=== PATIENT | male | born 1970 | race Caucasian/White ===

== ENCOUNTER 2017-12-21 11:20 | Emergency (ER) | END 2017-12-21 12:59 | disposition home or self-care (01) ==

== ENCOUNTER 2018-01-05 14:45 | Emergency (ER) | END 2018-01-05 16:00 | disposition home or self-care (01) ==

== ENCOUNTER 2018-01-10 17:44 | Emergency (ER) | END 2018-01-10 20:12 | disposition left against medical advice (07) ==

== ENCOUNTER 2018-01-17 08:37 | Emergency (ER) | END 2018-01-17 09:17 | disposition home or self-care (01) ==

== ENCOUNTER 2018-01-21 02:59 | Emergency (ER) | END 2018-01-21 04:35 | disposition left against medical advice (07) ==

== ENCOUNTER 2018-01-23 08:41 | Emergency (ER) | END 2018-01-23 10:25 | disposition home or self-care (01) ==

== ENCOUNTER 2018-02-09 01:42 | Emergency (ER) | END 2018-02-09 02:21 | disposition home or self-care (01) ==

== ENCOUNTER 2018-02-24 15:41 | Emergency (ER) | END 2018-02-24 17:04 | disposition home or self-care (01) ==

== ENCOUNTER 2018-03-11 13:03 | Emergency (ER) | END 2018-03-11 14:58 | disposition home or self-care (01) ==

== ENCOUNTER 2018-03-13 22:51 | Emergency (ER) | END 2018-03-14 00:03 | disposition home or self-care (01) ==

== ENCOUNTER 2018-04-01 05:08 | Emergency (ER) | END 2018-04-01 06:29 | disposition home or self-care (01) ==

== ENCOUNTER 2018-07-24 14:55 | Emergency (ER) | payer OTHER ==
[~2018-07-24] VITALS: Ht 180.3 cm; Wt 78.6 kg
[~2018-07-24 14:55] MED LIST: ACET325T33 PO; AMOX1TAB10 PO; CEPH-443 PO; COLACE; GEODON; HYDR-3029 PO; HYDR-4011 PO; HYDR2CRE; IBUP-1542; IBUP-1542 PO; MED4DP PO; NAPR-985 PO; NEXIUM; PAXIL; REGLAN; TRAM50TA2 PO
[2018-07-24 14:59] VITALS: BP 132/90; PULSE 80; RESP 20; Ht 180.3 cm; Wt 78.6 kg
[2018-07-24] MEDS ORDERED: KETOROLAC 60 MG INJ IM STA (15:40)
--- NOTE | 2018-07-24 18:23 | ERD ---
ER Documentation Chief Complaint Chief Complaint Pt. KOJO ANNE c/o low back pain, exacerbated by movements HPI 47-year-old male patient with no significant past medical history presents to ED complaining of lower back pain that started 2 days ago, worsened today. Denies any heavy lifting or injuries. Rates his pain a 6 out of 10 and describes as achy. Denies any fever, chills, saddle anesthesia, urine or bowel incontinence, abdominal pain, dysuria, urgency, frequency, flank pain, hematuria. ROS All systems reviewed and are negative except as per history of present illness. Medications Home Meds Active Scripts Hydroxyzine Hcl* (Hydroxyzine Hcl*) 10 Mg Tablet, 10 MG PO Q6H PRN for ANXIETY, #30 TAB Prov:BRANDT DAVILA PA-C 04/01/18 Ibuprofen* (Motrin*) 600 Mg Tab, 600 MG PO Q6, #30 TAB Prov:MANUEL ULLOA MD 03/11/18 Hydrocodone/Acetaminophen (Reading 5-325 Tablet) 1 Each Tablet, 1 TAB PO Q6H PRN for PAIN, #14 TAB Prov:MANUEL ULLOA MD 03/11/18 Tramadol HCl (Tramadol HCl) 50 Mg Tablet, 50 MG PO Q4 PRN for PAIN, #20 TAB Take for pain in daytime. Prov:MANUEL ULLOA MD 03/11/18 Cephalexin* (Keflex*) 500 Mg Capsule, 500 MG PO QID for 10 Days, CAP Prov:MANUEL ULLOA MD 03/11/18 Ibuprofen* (Motrin*) 600 Mg Tab, 600 MG PO Q6, #30 TAB Prov:LOUISE YEH PA-C 02/24/18 Tramadol HCl (Tramadol HCl) 50 Mg Tablet, 50 MG PO Q4 PRN for PAIN, #7 TAB Prov:LOUISE YEH PA-C 02/24/18 Naproxen* (Naprosyn*) 500 Mg Tablet, 500 MG PO BID PRN for PAIN AND/OR INFLAMMATION, #20 TAB Prov:LOUISE YEH PA-C 02/09/18 Ibuprofen* (Motrin*) 600 Mg Tab, 600 MG PO Q6, #30 TAB Prov:LOUISE YEH PA-C 02/09/18 Tramadol HCl (Tramadol HCl) 50 Mg Tablet, 50 MG PO Q4 PRN for PAIN, #20 TAB Prov:BRANDT DAVILA PA-C 01/23/18 Methylprednisolone* (Medrol* DOSE PACK) 4 Mg/Dose-Pack Tab.ds.pk, 4 MG PO . DIRECTED, #1 PACKET Prov:BRANDT DAVILA PA-C 01/23/18 Acetaminophen* (Tylenol*) 325 Mg Tablet, 2 TAB PO Q6 PRN for PAIN AND OR ELEVATED TEMP, #30 TAB Prov:TWILA OSPINA PA-C 01/17/18 Ibuprofen* (Motrin*) 600 Mg Tab, 600 MG PO Q6H PRN for PAIN AND OR ELEVATED TEMP, #30 TAB Prov:TWILA OSPINA PA-C 01/17/18 Naproxen* (Naprosyn*) 500 Mg Tablet, 500 MG PO BID PRN for PAIN AND/OR INFLAMMATION, #30 TAB Prov:MY GONGORA PA-C 01/05/18 Amoxicillin/Potassium Clav (Amox-Clav 875-125 mg Tablet) 875-125 mg Tab, 1 TAB PO BID for 7 Days, #14 TAB Prov:BRANDT DAVILA PA-C 12/21/17 Hydrocodone/Acetaminophen (Reading 5-325 Tablet) 1 Each Tablet, 1 TAB PO Q6H PRN for PAIN, #7 TAB Prov:BRANDT DAVILA PA-C 12/21/17 Reported Medications [Nexium] No Conflict Check 08/31/10 [Reglan] No Conflict Check 08/31/10 Ibuprofen* (Ibuprofen*) 600 Mg Tablet 08/31/10 Hydrocortisone (Dermolate Anti-Itch) 2 Gm Cream.gm. 08/31/10 [Colace] No Conflict Check 08/31/10 [Paxil] No Conflict Check 08/31/10 [Geodon] No Conflict Check 08/31/10 Allergies Allergies: Coded Allergies: No Known Drug Allergies (Verified Allergy, Mild, 03/13/18) PMhx/Soc History of Surgery: No Anesthesia Reaction: No Hx Neurological Disorder: No Hx Respiratory Disorders: No Hx Cardiac Disorders: No Hx Psychiatric Problems: Yes (DEPRESSION) Hx Miscellaneous Medical Probl: No Hx Alcohol Use: Yes (SOCIALLY) Hx Substance Use: No Hx Tobacco Use: Yes (VAPE) Smoking Status: Never smoker FmHx Family History: No diabetes, No coronary disease Physical Exam Vitals Vital Signs Date Temp Pulse Resp B/P (MAP) Pulse Ox O2 O2 Flow FiO2 Time Delivery Rate 07/24/18 98.2 80 20 132/90 97 14:59 (104) Physical Exam Const: [id number], well-nourished. In no acute distress. Head: Atraumatic, normocephalic Eyes: Normal Conjunctiva without injection. No purulent discharge. ENT: Normal external ear, nose. Moist oropharynx without tonsillar exudates. Non-erythematous pharynx. Uvula midline. No drooling. No trismus. Neck: No cervical midline tenderness. Full range of motion. No meningismus. No cervical lymphadenopathy. No JVD. Resp: Clear to auscultation bilaterally. No wheezing, rhonchi, rales, or crackles. No accessory muscle use. No retractions. Cardio: Regular rate and rhythm. No murmurs, rubs or gallops. Abd: Soft, nontender, non distended. Normal bowel sounds. No palpable masses. No rebound tenderness. No guarding. Negative McBurney's point. Negative psoas sign. Negative obturator sign. Skin: No petechiae or rashes Back: No midline tenderness. No CVA tenderness. Ext: No cyanosis, or edema. Neur: Awake and alert. Normal gait. Normal coordination. Psych: Normal Mood and Affect Results 24 hrs Current Medications Medications Dose Sig/Rj Start Time Status Last (Trade) Ordered Route PRN Stop Time Admin Dose Reason Admin Ketorolac 60 mg ONCE STAT 07/24/18 DC 07/24/18 Tromethamine IM 15:40 07/24/18 15:46 (Toradol) 15:41 Procedures/MDM 47-year-old male patient with no significant past medical history presents to the ED complaining of lower back pain that started 2 days ago. Patient is afebrile and nontoxic-appearing. Patient treated here in the ED with Toradol 60 mg IM with improvement of his pain. IMPRESSION: 1. Disc disease and enthesopathy at L3-4, L4-5, and to a minimal extent at L5- S1. 2. Mild levoscoliosis and loss of lumbar lordosis. Patient is ambulating here in the ED without difficulty. Denies saddle anesthesia, numbness or tingling, urine or bowel incontinence, weakness. Low suspicion for cauda equina syndrome, cord compression, nephrolithiasis, aortic aneurysm, aortic dissection, epidural abscess, spinal hematoma, malignancy, pyelonephritis, or other emergent conditions. Diagnosis: Back Pain Patient eloped prior to receiving results from his lumbar x-ray and discharge papers. Departure Diagnosis: Primary Impression: Back pain Back pain location: back pain in unspecified location Chronicity: unspecified Back pain laterality: unspecified Qualified Codes: M54.9 - Dorsalgia, unspecified Condition: Stable Patient Instructions: Back Pain (Acute Or Chronic) Referrals: [facility] CLINICS YOU HAVE RECEIVED A MEDICAL SCREENING EXAM AND THE RESULTS INDICATE THAT YOU DO NOT HAVE A CONDITION THAT REQUIRES URGENT TREATMENT IN THE EMERGENCY DEPARTMENT. FURTHER EVALUATION AND TREATMENT OF YOUR CONDITION CAN WAIT UNTIL YOU ARE SEEN IN YOUR DOCTORS OFFICE WITHIN THE NEXT 1-2 DAYS. IT IS YOUR RESPONSIBILITY TO MAKE AN APPOINTMENT FOR FOL- CARE. IF YOU HAVE A PRIMARY DOCTOR --you should call your primary doctor and schedule an appointment IF YOU DO NOT HAVE A PRIMARY DOCTOR YOU CAN CALL OUR PHYSICIAN REFERRAL HOTLINE AT IF YOU CAN NOT AFFORD TO SEE A PHYSICIAN YOU CAN CHOSE FROM THE FOLLOWING [facility] [address] [facility]. [facility] [address] [facility]. [facility] [address] [facility] [facility] [address] [facility] [facility] [facility] [address] [facility] [facility]. [address] [facility]. [facility] YOU HAVE RECEIVED A MEDICAL SCREENING EXAM AND THE RESULTS INDICATE THAT YOU DO NOT HAVE A CONDITION THAT REQUIRES URGENT TREATMENT IN THE EMERGENCY DEPARTMENT. FURTHER EVALUATION AND TREATMENT OF YOUR CONDITION CAN WAIT UNTIL YOU ARE SEEN IN YOUR DOCTORS OFFICE WITHIN THE NEXT 1-2 DAYS. IT IS YOUR RESPONSIBILITY TO MAKE AN APPOINTMENT FOR [facility]. IF YOU HAVE A PRIMARY DOCTOR --you should call your primary doctor and schedule and appointment IF YOU DO NOT HAVE A PRIMARY DOCTOR YOU CAN CALL OUR PHYSICIAN REFERRAL HOTLINE AT . IF YOU CAN NOT AFFORD TO SEE A PHYSICIAN YOU CAN CHOSE FROM THE FOLLOWING [facility] INSTITUTIONS: [facility] [address] [place] [address] [facility] [address] [place], [place] [id number] [place] [address] [address] [place] [address] [facility] URGENT CARE/SPECIALTIES Additional Instructions: Call your primary care doctor TOMORROW for an appointment during the next 2-3 days.See the doctor sooner or return here if your condition worsens before your appointment time. VONNIE VERDIN PA-C Jul 24, 2018 18:23
== END 2018-07-24 18:01 | disposition left against medical advice (07) ==
LOC: FTE 14:55
DX: M54.5 Low back pain (principal)
CPT/HCPCS: 72100; 96372; J1885; Z7502